=== PATIENT | female | born 1985 | race Caucasian/White ===

== ENCOUNTER 2017-12-08 08:07 | Inpatient (IN) | payer OTHER ==
[~2017-12-08] VITALS: Ht 160 cm; Wt 88.9 kg
[2017-12-08 09:00] LABS: ABSOLUTE BASOPHIL COUNT 0 /CUMM (0.0-0.2); ABSOLUTE EOSINOPHIL COUNT 0.1 /CUMM (0.0-0.7); ABSOLUTE GRANULOCYTE CT 8.7 /CUMM (1.4-6.5); ABSOLUTE LYMPH COUNT 1.3 /CUMM (1.2-3.4); ABSOLUTE MONOCYTE COUNT 0.7 /CUMM (0.10-0.60); BASOPHIL % 0.4 % (0.0-2.0); EOSINOPHIL % 0.9 % (0-5); MEAN CORPUSCULAR HGB 30.2 PG (27.0-31.0); MEAN CORPUSCULAR HGB CONC 34.4 G/DL (33.0-37.0); MEAN CORPUSCULAR VOLUME 87.9 FL (81.0-99.0); MEAN PLATELET VOLUME 7.5 FL (7.4-10.4); PLATELET COUNT 281 /CUMM (130-400); RBC DISTRIBUTION WIDTH 14.4 % (11.5-14.5); WHITE BLOOD CELL COUNT 10.9 /CUMM (4.8-10.8)
[2017-12-08] MEDS ORDERED: PRENATAL TABLE1 EAC2 PO (09:59)
--- NOTE | 2017-12-08 11:21 | History & Physical ---
General Information and HPI MD Statement: I have seen and personally examined VICKY ROONEY and documented this H&P. The patient is a 32 year old female at 40 weeks and 3 days gestation who presented with a chief complaint of labor pains Source of Information: patient, old records Exam Limitations: no limitations History of Present Illness: pt is well known to our practice who presents with painfull contractions sinse 3 am rom clear fluid 6am requested epidural upon arrival at3-4 cm now comfortable. 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 EENTM: Denies: blurred vision, double vision, visual changes. Cardiovascular: Denies: chest pain. Respiratory: Denies: cough, short of breath. GI: Denies: diarrhea, nausea, vomiting. Neurological/Psychological: Denies: anxiety, depressed. Exam & Diagnostic Data Last 24 Hrs of Vital Signs/I&O vss Intake & Output / 1600 06/08 0800 06/08 0000 Intake Total Output Total Balance Patient 196 lb Weight Obstetric Exam Wgt Gained During : 52 lbs Pelvimetry: seems adequate Dilation (cm): 4 Effacement (%): 50 Station: -2 Membranes: SROM Fluid: clear Fundal Height (cm): 40 Multiple Gestation? No Contractions: Q 3-4 min #1 - FHR Baseline: 144 Category: 1 Estimated Weight: 3500g Presentation: vtx Patient for Induction? No Physical Exam General Appearance Alert, Oriented X3, Cooperative, No Acute Distress Skin No Rashes HEENT Atraumatic Neck Supple Cardiovascular Regular Rate Lungs Clear to Auscultation Abdomen Soft Neurological Normal Speech Labs Blood Type & Rh: A pos Antibody Screen: neg Hct/Hgb & Platelets #1: 41.9/14.3/207 Hct/Hgb & Platelets #2: 37.4/11.3/327 Rubella: imm VDRL #1: nr VDRL #2: nr HbsAg: neg HIV #1: nr HIV #2 nr 1 Hr P 3 Hr P/142/93/51 Group B Strep: neg Initial Ultrasound: 04/28/17 8w3d Anatomy Ultrasound: 07/18/17 normal Ultrasound for EFW: 11/07/17 5#11oz Genetic Testing: CF cff DNA normal NT normal Last 24 Hrs of Labs/Johann: Laboratory Tests 12/08/17 0845: Estimated GFR > 60, Uric Acid 4.8, AST 23, ALT 33, Lactate Dehydrogenase 410, CBC w Diff NO MAN DIFF REQ, RBC 4.10 L, MCV 87.9, MCH 30.2, MCHC 34.4, RDW 14.4 , MPV 7.5, Gran % 80.0 H, Lymphocytes % 12.2 L, Monocytes % 6.5, Eosinophils % 0.9, Basophils % 0.4, Absolute Granulocytes 8.7 H, Absolute Lymphocytes 1.3, Absolute Monocytes 0.7 H, Absolute Eosinophils 0.1, Absolute Basophils 0 12/08/17 0817: Membrane Rupture POSITIVE Microbiology 12/08 1001 URINE ROUT: Urine Culture - ORD Assessment/Plan Assessment/Plan: iup at term epidural anasthesia plan expectant management As Ranked By This Provider Problem List: 1. Normal labor Core Measures Venous Thromboembolism VTE Risk Factors / No Mechanical VTE Prophylaxis d/t Early Ambulation No VTE Pharm Prophylaxis d/t LowRisk-No Interven Req'd Attending MD Review Statement Attending Statement Attending MD Statement: examined this patient, discussed with family, discussed w/nursing
--- NOTE | 2017-12-08 18:06 | PN- OBGYN ---
Surgical Brief Attending Note Brief Attending Note: pt now fully dilated head at -1 station FHR cat 1 will see if pt can push with epidural.
--- NOTE | 2017-12-08 19:07 | PN- OBGYN ---
Surgical Brief Attending Note Brief Attending Note: Pt pushed well for 1 hour caput developing and head not advancing past -1 station baby becoming tachycardic plan for primary c/s.
--- NOTE | 2017-12-08 20:46 | Operative Report ---
Operative/Inv Procedure Report Surgery Date: 12/08/17 Name of Procedure: primary L/T C/S Pre-Operative Diagnosis: Arrest of second stage Post-Operative Diagnosis: Same Estimated Blood Loss: 700 Surgeon/Physical Metallurgist: Henri CARMICHAEL,Mehdi Smith MD, Mehdi Anesthesia: block Urine Output: 100 Drains: Bills Specimens: Placenta Complications: None Condition: Good Operative Indication: Arrest of descent Operative/Procedure Note Note: After the induction of spinal anesthesia the patient was placed in the left lateral tilt position Bills catheter was placed and heart rate was noted to be 144 bpm after testing for adequacy of anesthesia a Pfannenstiel incision was made in the skin and carried down sharply to the fascia hemostasis was achieved with electrocautery. The Fascia was incised in the midline sharply and the incision was carried out laterally sharply. The fascia was divided from the underlying rectus muscles in the superior and inferior direction sharply. The rectus muscle bundles were divided in the midline sharply. A bladder flap was created on the lower uterine segment. The lower uterine segment was entered in the midline sharply and the incision was carried out laterally bluntly. was delivered through clear amnionic fluid vertex position atraumatically cord was doubly clamped and cut and the infant was handed to the pediatric attendant. The placenta was manually extracted and the interior of the uterus was wiped clean with wet laps. The uterus was externalized. A right Carmen Carmen stitch placed.The uterine incision was closed in 2 layers the first a running locking stitch the second an imbricating over the first 0 Polysorb sutures were used after checking for hemostasis the uterus was returned to its normal anatomic position the abdominal/perineal cavity was irrigated copiously once again the uterus was checked for hemostasis which was judged to be excellent. The parietal peritoneum was reapproximated in a simple running fashion with 0 Polysorb suture , subfascial planes were checked for hemostasis which was judged to be excellent. Fascia was then closed with 2 simple running sutures overlapping in the midline. Subcuticular tissues were irrigated copiously and hemostasis was achieved with electrocautery. A subcuticular Ev's fascia which was placed in a simple running fashion of 2-0 Polysorb. The skin was closed with jessica. Her uterus was expressed of a small amount of blood. The only drain left at the end of the procedure was a Bills catheter.
--- NOTE | 2017-12-09 09:22 | PN- Post Delivery/GYN ---
Subjective Subjective: feling well Review of Systems Constitutional: Denies: chills, fever. EENTM: Denies: blurred vision, double vision, visual changes. Cardiovascular: Denies: chest pain, palpitations. Respiratory: Denies: short of breath. Gastrointestinal: Denies: nausea, vomiting. Neurological/Psychological: Denies: anxiety, depressed. Objective Last 24 Hrs of Vital Signs/I&O vss Physical Exam General Appearance Alert, Oriented X3, Cooperative, No Acute Distress Skin No Rashes HEENT Atraumatic Neck Supple Cardiovascular Regular Rate Lungs Clear to Auscultation Abdomen Soft, fundus firm incision dry Pelvic (FEMALE) lochia serosanganous Current Medications: Current Medications Sig/Janes Start time Last Medication Dose Route Stop Time Status Admin Acetaminophen 1,000 MG Q6P PRN 12/08 2330 AC IV Acetaminophen 650 MG Q4P PRN 12/08 204 AC PO Butorphanol Tartrate 2 MG .STK-MED ONE 12/08 1820 DC IV 12/08 1821 Butorphanol Tartrate 1 MG Q4P PRN 12/08 0845 DC 12/08 IV 0855 Butorphanol Tartrate 1 MG Q4P PRN 12/08 0845 DC IM Cefazolin Sodium 2 GM .STK-MED ONE 12/08 1922 DC IV 12/08 192 Chloroprocaine HCl 30 ML .STK-MED ONE 12/08 1806 DC IV 12/08 1807 Citric Acid/Sodium 30 ML ONE TIME CBC 12/08 1915 DC 12/08 Citrate PO 12/08 2000 1907 Diphenhydramine HCl 25 MG Q6P PRN 12/09 2230 AC IV Diphenhydramine HCl 50 MG Q6P PRN 12/08 204 AC IM 12/09 204 Hydroxyzine HCl 50 MG AT BEDTIME NEED.. 12/09 0000 AC PO Ibuprofen 800 MG Q6P PRN 12/08 2045 AC PO Ketorolac 30 MG Q6-PRN PRN 12/09 0430 AC 12/09 Tromethamine IV 0405 Ketorolac 30 MG Q6P PRN 12/08 2330 DC Tromethamine IM 12/09 2329 Lactated Ringer's 1,000 ML Q8H 12/08 2045 AC 12/09 IV 0606 Lactated Ringer's 1,000 ML Q8H 12/08 0845 DC 12/08 IV 1225 Magnesium Hydroxide 30 ML DAILY NEEDED PRN 12/08 2045 AC PO Metoclopramide HCl 10 MG Q6P PRN 12/08 2330 AC 12/08 IV 2300 Morphine Sulfate 10 MG Q4P PRN 12/08 2045 AC IV 12/09 204 Morphine Sulfate 10 MG .STK-MED ONE 12/08 1921 DC IV 12/08 1922 Ondansetron HCl 4 MG .STK-MED ONE 12/08 1820 DC IV 12/08 1821 Ondansetron HCl 4 MG Q6P PRN 12/08 1230 DC 06 IV 1223 Oxycodone/ 1 TAB Q4P PRN 12/08 204 AC Acetaminophen PO Oxycodone/ 2 TAB Q4P PRN 12/08 204 AC Acetaminophen PO Oxytocin 20 UNITS Q8H 12/08 2045 DC 12/08 Lactated Ringer's 1,000 ML IV 12/09 0444 2200 Oxytocin 10 UNITS .STK-MED ONE 12/08 1919 DC IM 12/08 1920 Oxytocin 500 UNITS .STK-MED ONE 12/08 1820 DC IV 12/08 1821 Oxytocin 30 UNITS PER PROTOCL 12/08 1345 DC 08 Lactated Ringer's 500 ML IV 1344 Oxytocin 30 UNITS PER PROTOCL 12/08 1145 DC /08 Lactated Ringer's 500 ML IV 12/09 1144 1145 Promethazine HCl 25 MG Q4P PRN 12/08 2045 AC IM 12/09 2044 Assessment/Plan Assessment/Plan pod #1 vss afebrile plan d/c myers ambulate Problem List: 1. delivery delivered Attending MD Review Statement Attending Statement Attending MD Statement: examined this patient, discussed with family, discussed with nursing
[2017-12-09 09:47] LABS: ABSOLUTE BASOPHIL COUNT 0 /CUMM (0.0-0.2); ABSOLUTE EOSINOPHIL COUNT 0 /CUMM (0.0-0.7); ABSOLUTE GRANULOCYTE CT 11.1 /CUMM (1.4-6.5); ABSOLUTE LYMPH COUNT 1.4 /CUMM (1.2-3.4); ABSOLUTE MONOCYTE COUNT 0.9 /CUMM (0.10-0.60); BASOPHIL % 0.2 % (0.0-2.0); EOSINOPHIL % 0.1 % (0-5); GRANULOCYTE % 82.8 % (42.2-75.2); MEAN CORPUSCULAR HGB 29.8 PG (27.0-31.0); MEAN CORPUSCULAR HGB CONC 33.1 G/DL (33.0-37.0); MEAN PLATELET VOLUME 8.1 FL (7.4-10.4); PLATELET COUNT 245 /CUMM (130-400); RBC DISTRIBUTION WIDTH 14.7 % (11.5-14.5); RED BLOOD CELL CT 3.18 /CUMM (4.20-5.40); WHITE BLOOD CELL COUNT 13.4 /CUMM (4.8-10.8)
[2017-12-09 11:00] LABS: HEMATOCRIT 28.6 % (37-47)
--- NOTE | 2017-12-10 12:54 | PN- Post Delivery/GYN ---
Subjective Subjective: feeling well just sore at incision Review of Systems Constitutional: Denies: chills, fever. EENTM: Denies: blurred vision, double vision, visual changes. Cardiovascular: Denies: chest pain. Respiratory: Denies: short of breath. Gastrointestinal: Denies: diarrhea, nausea, vomiting. Musculoskeletal: Denies: back pain. Neurological/Psychological: Denies: anxiety, depressed. Objective Last 24 Hrs of Vital Signs/I&O vss Physical Exam General Appearance Alert, Oriented X3, Cooperative, No Acute Distress Cardiovascular Regular Rate Lungs Clear to Auscultation Abdomen Soft, fundus firm Pelvic (FEMALE) lochia serosanganous Current Medications: Current Medications Sig/Janes Start time Last Medication Dose Route Stop Time Status Admin Acetaminophen 1,000 MG Q6P PRN 12/08 2329 AC IV Acetaminophen 650 MG Q4P PRN 12/08 2044 AC PO Diphenhydramine HCl 25 MG Q6P PRN 12/09 2230 AC IV Diphenhydramine HCl 50 MG Q6P PRN 12/08 2044 DC IM 12/10 2043 Docusate Sodium 100 MG DAILY NEEDED PRN 12/10 0015 AC 12/10 PO 0010 Hydroxyzine HCl 50 MG AT BEDTIME NEED.. 12/09 0000 AC PO Ibuprofen 800 MG .STK-MED ONE 12/10 0005 DC PO 12/10 0006 Ibuprofen 800 MG .STK-MED ONE 12/09 1827 DC PO 12/09 1828 Ibuprofen 800 MG Q6P PRN 12/08 2044 AC 12/10 PO 0715 Ketorolac 30 MG Q6-PRN PRN 12/09 0430 AC 12/09 Tromethamine IV 1043 Lactated Ringer's 1,000 ML Q8H 12/08 2044 AC 12/09 IV 0606 Magnesium Hydroxide 30 ML DAILY NEEDED PRN 12/08 2044 AC PO Metoclopramide HCl 10 MG Q6P PRN 12/08 2330 AC 12/08 IV 2300 Morphine Sulfate 10 MG Q4P PRN 12/08 2044 DC IV 12/09 204 Oxycodone/ 1 TAB Q4P PRN 12/08 2044 AC 12/10 Acetaminophen PO 1218 Oxycodone/ 2 TAB Q4P PRN 12/08 2044 AC Acetaminophen PO Promethazine HCl 25 MG Q4P PRN 12/08 2044 DC IM 12/10 2043 Assessment/Plan Assessment/Plan POD#@2 vss afebrile/plan d/c home tomorrow Problem List: 1. delivery delivered Attending MD Review Statement Attending Statement Attending MD Statement: examined this patient, discussed with family, discussed with nursing
[2017-12-11] MEDS ORDERED: PERCOCET 5-3251 EACH PO (13:38)
[2017-12-11] MEDS ORDERED: IBUPROFEN800 M1 PO (13:38)
--- NOTE | 2017-12-11 14:43 | Surgical Discharge Summary ---
Visit Information Visit Dates Admission Date: 12/08/17 Discharge Date: 12/11/17 History of Present Illness Chief Complaint: 32yo presented to L&D in early active labor. Medical History Blood Transfusion Hx: No Surgical History Pertinent Surgical History: none Psychosocial History What is Your Primary Language? Slovenian ETOH Use: denies use Review of Systems: all essentially negative Hospital Course Course Attending Physician: Henri CARMICHAEL,Mehdi Olson Primary Care Physician: Patient Has No Primary Care Dr Hospital Course: With Pitocin augmentation patient progressed to full dilation. Delivery by primary C/S was advised after one hour in the second stage after noting no descent of the head, and persistent FHR tracing abnormalities. The C/S progressed uneventfully, and her postoperative course went smoothly. She was discharged home on POD3 in very good condition, with excellent pain control, ability to ambulate, and return of normal bladder and bowel function. Complications: none Allergies: Coded Allergies: No Known Allergies (12/08/17) Disposition Summary Disposition Principal Diagnosis: Second stage arrest Additional Diagnosis: arrest of descent Discharge Disposition: home or self care Discharge Instructions General Discharge Information Code Status: Full Code Patient's Diet: regular Patient's Activity: pelvic rest for 6 weeks Follow-Up Instructions/Appts: to office in 2 weeks for incision check Medications at Discharge Discharge Medications: Continue taking these medications: Vit No.130/Iron/FA ( Tablet) 27 MG IRON-800 MCG TABLET 1 Tablet ORAL DAILY Start taking the following new medications: Ibuprofen (Ibuprofen) 800 MG TABLET 800 Milligram ORAL EVERY SIX HOURS NEEDED as needed for UTERINE CRAMPING Qty = 30 No Refills Comments: Last Taken:12/11/17 Time:0616 Oxycodone HCl/Acetaminophen (Percocet 5-325 MG Tablet) 5 MG-325 MG TABLET 1 Tablet ORAL EVERY 4 HOURS NEEDED as needed for PAIN SCALE 7-10 (SEVERE) Qty = 20 No Refills Copies To: Jamaal CARMICHAEL,Rosalia Almonte MD Review Statement Attending Statement Attending Statement: examined this patient, reviewed EMR data (avail), discussed w/nursing
--- NOTE | 2017-12-11 14:53 | PN- Post Delivery/GYN ---
Subjective Subjective: Good pain control. Ambulating, voiding, passing gas, no BM yet. Nursing, and baby latches well. afebrile BP Abd - soft, NT, nondistended Fundus firm, NT, below Umb. Incision - C/D/I, jessica removed and steri-strips applied Perineum - dry Extr - 2+ edema bilat. symmetrical, no calf cords, tenderness or redness A: recovering well s/p primary C/S P: discharge home today, instructions reviewed incl. pain meds to office in 2w for incision check Objective Last 24 Hrs of Vital Signs/I&O see Physical Exam: see Assessment/Plan Assessment/Plan see Problem List: 1. delivery delivered Attending MD Review Statement Attending Statement Attending MD Statement: examined this patient Attending Assessment/Plan: see
== END 2017-12-11 14:19 | DRG 766 ==
LOC: CBCO 08:07 → GNO 08:26
PROVIDERS: Obstetrics & Gynecology
PROC: 10D00Z1 Extraction of Products of Conception, Low, Open Approach (ICD-10-PCS; principal; 2017-12-08)
DX: O62.1 Secondary uterine inertia (principal); O76 Abnormality in fetal heart rate and rhythm complicating labor and delivery; Z3A.40 40 weeks gestation of pregnancy; Z37.0 Single live birth; Z87.891 Personal history of nicotine dependence
CPT/HCPCS: GNOS; 36415; 84112; 87086; J0131; J0595; J0690; J1885; J2405; J2765; J7120